=== PATIENT | female | born 1990 | race Asian ===

== ENCOUNTER 2018-03-25 12:28 | Emergency (ER) | payer OTHER ==
[~2018-03-25] VITALS: Ht 160 cm; Wt 59.6 kg
[2018-03-25 12:35] VITALS: Ht 160 cm; Wt 59.6 kg
[2018-03-25 13:12] VITALS: BP 97/69; PULSE 82; TEMP 36.8; O2SAT 98
[2018-03-25] MEDS: DIPHTHERIA/TETANUS/PERTUSSIS 0.5 ML SYR/VIAL IM. ONE ×2 (13:25→13:30)
[2018-03-25] MEDS ORDERED: RABIES IMMUNE GLOBULIN (HUMAN) 150 INTER.UNIT/ML 2 ML VIAL IM. ONE (13:30)
[2018-03-25] MEDS ORDERED: RABIES VACCINE (IMOVAX) HUMAN DIPL CELL 2.5 INTER.UNIT/ML SYR IM. ONE (13:30)
--- NOTE | 2018-03-25 14:08 | EMERGENCY ROOM VISIT NOTE ---
History First contact with patient: 12:45 Chief Complaint: LACERATION/CUT (SUT/DERMABOND) Stated Complaint: SCRATCHED BY DOG Nursing Triage Summary: see triage note left later anterior thigh 5 cm horizontal abrasion. no sx infection, bleeding, drainage, reddness, induration or swelling. surrounding tissue pink, nontender, no ecchymosis History of Present Illness The patient is a 27 year old female who presents to the Emergency Room with complaints of a scratch to her left thigh. This happened [place] dog park. The patient was sitting on a bench when a dog came up to her and put its paw on her lap. She sustained a scratch to the leg when the dog pulled its paw away. The patient has not noticed any bleeding or wet appearance of the wound. The patient reports that she "contacted the CDC" and was recommended that she come to the emergency department for the rabies immunization series. The patient first went to the [facility] urgent care center where they suggested that she receive a tetanus booster. The patient cannot recall her last tetanus immunization. The patient has lived in the [facility] now for 8 years. Her childhood immunizations are up-to-date, and she denies any recollection of wounds since arriving to the [facility]. The patient presents to the emergency department, wanting to discuss the need for rabies immunization series. The patient reports that she currently does not have any insurance, and has a job that starts on 03/30/18 in [place]. She will have health insurance at that time, and is concerned about the cost of associated treatment. Review of Systems 10 system review was performed and was negative except for pertinent positives and negatives as indicated in history of present illness Past Medical/Surgical History Medical Problems: (1) Ovarian Cyst Nec/Nos (2) Unilateral inguinal hernia Surgical Problems: (1) No history of previous surgery Family History Unremarkable Social History Smoking Status: Never Smoker Alcohol Use: none Drug Use: none Marital Status: single Housing Status: lives with roommate Occupation Status: [employer] student Current/Historical Medications No Active Prescriptions or Reported Meds Physical Exam Vital Signs Date Time Temp Pulse Resp B/P (MAP) Pulse Ox O2 Delivery O2 Flow Rate FiO2 03/25/18 13:12 36.8 82 20 97/69 98 03/25/18 12:35 36.8 82 20 97/69 98 Room Air Physical Exam CONSTITUTIONAL: Healthy and well nourished. Alert and oriented X 3 with positive affect. Patient does not appear in any acute distress. HEENT: Normocephalic, atraumatic. Pupils equal, round and reactive. NECK: Full active range of motion without discomfort. RESPIRATORY: Clear to auscultation bilaterally with no wheezing, crackles, rhonchi or stridor. CARDIOVASCULAR: Regular rate and rhythm with no murmurs, rubs or gallops. MUSCULOSKELETAL: Full range of motion of all joints without discomfort. INTEGUMENTARY: Examination of left anterior distal thigh shows a superficial 5 cm abrasion. The wound does not appear wet, nor does it extend into the underlying dermis. There is no surrounding erythema, edema or induration. She ambulates without antalgic gait. NEUROLOGIC: Left lower extremity is sensory intact. Medical Decision & Procedures Medications Administered Medications (Trade) Dose Ordered Sig/Ingrid Route Start Time Stop Time Status Last Admin Dose Admin Rabies Vaccine Human Diploid Cell (Imovax Rabies) 2.5 interunit ONCE ONCE IM. 03/25/18 13:30 03/25/18 13:32 DC 03/25/18 13:36 2.5 INTERUNIT ED Course Patient history and physical exam were performed. Nurse's notes were reviewed. Vital signs were reviewed and were normal. I confirmed with the patient that this was a scratch from a call, and not a bite. She confirms that it was not a bite. I explained that her risk for jermaine rabies is negligible. The patient reports that the CDC recommended that if the dog may have been rapid and elected [place] that she could contract rabies in that fashion. I explained that this is unlikely. I then recommended updating her tetanus immunization as she likely has not had her last shot since approximately 11 years of age. She has had no wound since that time to warrant a booster, and she has not had a family doctor while living in the [facility]. The patient then voiced concern that she currently does not have active insurance since she graduated from [employer]. She reports that she will have insurance after her employment start date of 03/30/18. She even want to know the cost of Adacel. I did speak with our pharmacist, who reported that the cost would be somewhere likely between $70-$100. The patient elected to defer this treatment until she got to [place]. As I was finishing her discharge paperwork, the nurse reports that the patient had called her doctor who is a physician in [place], and he requested that the patient undergo the rabies immunization series, willing to pay the cost of the medication and treatment. He also requested that she receive a tetanus booster as well. I did explain to the patient that the rabies immunization series is quite expensive, and she voiced understanding. The patient was therefore administered Adacel IM, along with the human rabies immunoglobulin and Imovax immunization. Because the patient does not have any other chronic health history, she was given a schedule to return on days 3, 7 and 14. The patient was advised that if she is in [place] near the conclusion of her series, she must go to an emergency department there in order to receive her injection as her family doctor will not carry the Imovax immunization. The patient was instructed to watch for any signs of developing wound infection. The patient was happy with plan of care, voiced understanding of all discharge instructions , and denied any significant pain at the time of discharge. Medical Decision Medication Reconcilliation Current Medication List: was personally reviewed by me Blood Pressure Screening Patient's blood pressure: Normal blood pressure Impression Primary Impression: Abrasion, left thigh, initial encounter Additional Impression: Rabies, need for prophylactic vaccination against Departure Information Dispostion Home / Self-Care Prescriptions No Active Prescriptions or Reported Meds Referrals No Doctor, Assigned (PCP) [facility] Forms HOME CARE DOCUMENTATION FORM, IMPORTANT VISIT INFORMATION Patient Instructions [facility] Additional Instructions Watch for any signs of infection around the wound (increasing redness, swelling , pain, red streaks or fever). You will need subsequent Imovax injections on the following dates: Day 3 (03/28) Day 7 (04/01) Day 14 (04/08) Return to the emergency department for these injections as family doctors do not stock this medication. If you are in [place], go to an emergency department on the above dates for your injections. Problem Qualifiers
== END 2018-03-25 13:12 | disposition home or self-care (01) ==
LOC: C.EDB 12:29 → C.EDD 13:12
DX: S70.312A Abrasion, left thigh, initial encounter (principal); W54.8XXA Other contact with dog, initial encounter; Z23 Encounter for immunization